=== PATIENT | male | born 1980 | race Hispanic/Latino ===

== ENCOUNTER 2018-11-22 20:48 | Emergency (ER) | payer OTHER ==
[~2018-11-22] VITALS: Ht 167.6 cm; Wt 108.9 kg
[2018-11-22] MEDS ORDERED: MECLIZINE HCL25 MG PO (22:26)
[2018-11-22] MEDS ORDERED: LISINOPRIL10 MG PO (22:26)
[2018-11-22] MEDS ORDERED: METFORMIN HCL500 MG PO (22:27)
[2018-11-23] MEDS ORDERED: OMEPRAZOLE20 MG PO (01:20)
== END 2018-11-23 01:36 | disposition home or self-care (01) ==
LOC: ED 20:48
DX: K27.9 Peptic ulcer, site unspecified, unspecified as acute or chronic, without hemorrhage or perforation (principal); I10 Essential (primary) hypertension; Z87.891 Personal history of nicotine dependence; Z79.899 Other long term (current) drug therapy
CPT/HCPCS: 76705; 80053; 81001; 83690; 85025; 99284-25; J2405